=== PATIENT | male | born 1990 | race Caucasian/White ===

== ENCOUNTER 2016-07-14 12:19 | Emergency (ER) | payer MEDICAID ==
[~2016-07-14] VITALS: Ht 180.3 cm; Wt 88.9 kg
[2016-07-14 12:23] VITALS: BP 125/76
== END 2016-07-14 14:14 | disposition home or self-care (01) ==
LOC: ED 12:19
DX: K04.7 Periapical abscess without sinus (principal)
CPT/HCPCS: J0561; J1885

== ENCOUNTER 2018-03-01 15:05 | Emergency (ER) | payer SELFPAY ==
[~2018-03-01] VITALS: Ht 180.3 cm; Wt 86.2 kg
[2018-03-01 15:12] VITALS: Ht 180.3 cm; Wt 86.2 kg
[2018-03-01 16:36] LABS: UA SPECIFIC GRAVITY 1.025 (1.005-1.035); microscopic required? YES; urine erythrocyte TRACE (NEGATIVE)
[2018-03-01 16:45] LABS: BASOPHIL % 0.4 % (0-2); PLATELET COUNT 192 x10^3mcL (130-400); RED CELL DISTRIBUTION WIDTH 13.6 % (11.5-14.5)
[2018-03-01 16:51] LABS: CALCIUM 9.3 mg/dL (8.5-10.1); CARBON DIOXIDE 28.5 mmol/L (21-32); CHLORIDE SERUM 102 mmol/L (98-107); CREATININE SERUM 1.3 mg/dL (0.7-1.3); GFR1 > 60 mL/min; GLUCOSE SERUM 88 mg/dL (74-106); POTASSIUM SERUM 4.1 mmol/L (3.5-5.1); SODIUM SERUM 137 mmol/L (136-145)
[2018-03-01 16:51] LABS: AMPHETAMINE QUAL UR NONE DETECTED (See below)
[2018-03-01 16:56] LABS: ALBUMIN 4.2 g/dL (3.4-5.0); ALKALINE PHOSPHATASE 92 U/L (46-116); ALT/SGPT 51 U/L (16-63); AST/SGOT 26 U/L (15-37); BILIRUBIN TOTAL 0.7 mg/dL (0.20-1.00); CHOLESTEROL 175 mg/dL (<200); HDL CHOLESTEROL 35 mg/dL (40-60)
[2018-03-01 17:01] LABS: TOTAL PROTEIN, SERUM 8.3 g/dL (6.4-8.2)
[2018-03-01 17:03] LABS: FREE T4 0.93 ng/dL (0.76-1.46); FREE THYROXINE INDEX 2.4 ug/dL (1.4-4.5); T4(THYROXINE) 7.4 ug/dL (4.7-13.3)
[2018-03-01 18:20] VITALS: BP 110/71
[2018-03-01 20:00] LABS: T3 TOTAL 1.26 ng/mL
== END 2018-03-01 18:20 | disposition home or self-care (01) ==
LOC: ED 15:05
PROVIDERS: Emergency Medicine
DX: R53.1 Weakness (principal); R42 Dizziness and giddiness; R63.4 Abnormal weight loss
CPT/HCPCS: 84439

== ENCOUNTER 2020-03-10 13:55 | Emergency (ER) | payer MEDICAID ==
[~2020-03-10] VITALS: Ht 177.8 cm; Wt 92.1 kg
[2020-03-10 13:58] VITALS: Ht 177.8 cm; Wt 92.1 kg
[2020-03-10 16:30] VITALS: BP 127/76
== END 2020-03-10 16:30 | disposition home or self-care (01) ==
LOC: ED 13:55
DX: U07.1 COVID-19 (principal)